=== PATIENT | female | born 1960 | race Caucasian/White ===

== ENCOUNTER 2021-02-13 15:33 | Outpatient (CLI) | payer OTHER, SELFPAY ==
[2021-02-13 15:45] LABS: Hematocrit 40.6 % (35.0-49.0); Hemoglobin 14.4 g/dL (12.0-15.0); Mean Corpuscular HGB Conc 35.5 g/dL (32.0-36.0); Mean Corpuscular Hemoglobin 31.7 pg (27.0-31.0); Mean Corpuscular Volume 89.4 fL (78.0-102.0); Mean Platelet Volume 9.3 fl (9.2-11.8); Platelet Count Result 279 K/mm3 (150-420); Red Blood Count 4.54 M/mm3 (4.20-5.40); Red Cell Distribution Width 11.5 % (11.6-14.4)
[2021-02-13 16:50] LABS: Alanine Aminotransferase 30 U/L (14-59); Albumin Level 4.1 g/dL (3.4-5.0); Alkaline Phosphatase 165 U/L (46-116); Anion Gap 9 mmol/L (8-16); Aspartate Amino Transferase 18 U/L (15-37); Bilirubin,Total 0.3 mg/dL (0.00-1.00); Blood Urea Nitrogen 13 mg/dL (7-18); Calcium 9.6 mg/dL (8.5-10.1); Carbon Dioxide 28 mmol/L (21-32); Chloride 92 mmol/L (98-108); Cholesterol 196 mg/dL (0-200); Estimated Glomerular Filt Rate > 60; Glucose 84 mg/dL (70-99); HDL Direct 58 mg/dL (40-60); LDL Cholesterol Calculated 115 mg/dL (<130); Osmolality Calculated 267 mOsm/kg (285-295); Potassium 4.4 mmol/L (3.5-5.1); Sodium 129 mmol/L (136-145); Total Protein 7.5 g/dL (6.4-8.2); Triglycerides 114 mg/dL (0-150)
[2021-02-13 16:51] LABS: Thyroid Stimulating Hormone Reflex 0.38 u/IU/mL (0.36-3.74)
== END 2021-02-13 15:34 | disposition home or self-care (01) ==
LOC: CHSLAB 15:37
PROVIDERS: PCP Family Medicine; Visit Provider Family Medicine
DX: E11.9 Type 2 diabetes mellitus without complications (principal); I10 Essential (primary) hypertension
CPT/HCPCS: 36415; 80053; 80061; 84443; 85027